=== PATIENT | female | born 1990 | race Caucasian/White ===

== ENCOUNTER 2016-09-02 21:05 | Emergency (ER) | payer OTHER ==
[~2016-09-02 21:05] MED LIST: /MOM400 PO; ACET50TA PO; ANUS2.5C2 EXT; DOCU10ELUD PO; IBUP600T26 PO; IBUP60TA PO; MULTTAB20 PO; ULTR50TA PO; ZANTTAB PO
[2016-09-02] MEDS ORDERED: IBUPROFEN 600 MG TAB As Ordered ONE (22:48)
[2016-09-02] MEDS ORDERED: CEPHALEXIN 250 MG CAP As Ordered ONE (22:48)
--- NOTE | 2016-09-02 22:54 | REP ---
Clinical: Trauma. Technique: AP, lateral, bilateral oblique views right foot . Findings: The osseous structures and joint spaces are intact and normal. There is no evidence for acute fracture or dislocation. Surrounding soft tissues are unremarkable. No subcutaneous emphysema or radiodense foreign body. Impression: No acute fracture or dislocation. Signed by Bashir Smith MD 09/02/2016 10:45 P
--- NOTE | 2016-09-02 23:01 | EDDOCDS ---
Physician Documentation [facility] Name: Andra Crouch Age: 26 yrs Sex: Female : 1990 Arrival Date: 09/02/2016 Time: 21:05 Bed PD Private MD: Jose Marie MD Disposition: 09/02/16 22:50 Discharged to Home/Self Care. Impression: Contusion of right foot, Abrasion of toe. - Condition is Stable. - Discharge Instructions: Foot Contusion. - Prescriptions for Ibuprofen 600 mg Oral Tablet - take 1 tablet by ORAL route every 6 hours As needed take with food; 30 tablet. Keflex 500 mg Oral Capsule - take 1 capsule by ORAL route every 6 hours for 10 days; 40 capsule. - Medication Reconciliation, Local Pharmacy Hours form. - Follow up: [facility]; When: 2 - 3 days; Reason: Recheck today's complaints, Continuance of care. - Problem is new. - Symptoms have improved. Historical: - Allergies: SULFA (SULFONAMIDES); - Home Meds: 1. Albuterol Inhl 2. Albuterol Nebulizer 3. Klonopin 0.5 mg Oral TbDL - PMHx: Asthma; - PSHx: none; - Social history: Smoking status: Patient uses tobacco products, current some day smoker. No barriers to communication noted, The patient speaks fluent Greek, Speaks appropriately for age. - Family history: Not pertinent. - : The pt / caregiver states he / she is not on anticoagulants. Home medication list is obtained from the patient. - Exposure Risk Screening:: None identified. 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 3 in. (160.02 cm) (R); Pain 9/10; 21:07 Body Mass Index 33.48 (85.73 kg, 160.02 cm) gr2 Procedures: 22:50 Fracture care/splinting: Splint applied to right foot using POST OP SHOE. applied by ck7 nurse. Examined by me, post splint application: neurovascular intact, 2+ distal pulses palpable, brisk capillary refill noted, Patient tolerated well. MDM: 21:16 Foot, Complete Ordered. EDMS 22:44 Wound Care ordered. ck7 22:44 Ibuprofen 600 mg PO once ordered. ck7 22:44 Cephalexin 500 mg PO once ordered. ck7 22:44 Splint Affected Extremity ordered. ck7 22:44 Crutches ordered. ck7 Administered Medications: 22:52 Drug: Ibuprofen 600 mg [ibuprofen 600 mg tablet (1 tabs)] Route: PO; mb9 22:52 Drug: Cephalexin 500 mg [cephalexin 250 mg capsule (2 caps)] Route: PO; mb9 Signatures: Dispatcher MedHost EDMS Herrera Llamas, RN NUNO cz Lilo Abdul RN RN lf1 Rell Turk, RPA-C RPA-Cck7 Tani Richardson RN RN mb9 LIZZIED
--- NOTE | 2016-09-02 23:01 | EDDOCDS ---
Nurse's Notes [facility] Name: Andra Crouch Age: 26 yrs Sex: Female : 1990 Arrival Date: 09/02/2016 Time: 21:05 Bed PD Private MD: Jose Marie MD Diagnosis: Contusion of right foot;Abrasion of toe Presentation: 09/02 21:10 Presenting complaint: Patient states: kicked bathroom door with bare foot now having cz pain to right toes and foot. Adult Sepsis Screening: The patient does not have new or worsening altered mentation. Patient's respiratory rate is less than 22. Systolic blood pressure is greater than 100. Patient has a qSOFA score of 0- Negative Sepsis Screen. Suicide/Homicide risk assessment- the patient denies having any suicidal and/or homicidal ideations and does not present with any other emotional, behavioral or mental health complaints. 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 Transition of care: patient was not received from another setting of care. 21:10 Acuity: DEYSI Level 4 cz 21:10 Method Of Arrival: Wheelchair cz Triage Assessment: 21:14 General: Appears uncomfortable. Pain: Location: right foot Pain currently is 6 out of cz 10 on a pain scale. HIV screening NA for this visit Offered previously. 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 Albuterol Inhl 2. Albuterol Nebulizer 3. Klonopin 0.5 mg Oral TbDL - PMHx: Asthma; - PSHx: none; - Social history: Smoking status: Patient uses tobacco products, current some day smoker. No barriers to communication noted, The patient speaks fluent Bahamian, Speaks appropriately for age. - Family history: Not pertinent. - : The pt / caregiver states he / she is not on anticoagulants. Home medication list is obtained from the patient. - Exposure Risk Screening:: None identified. Screenin:35 Screening information is obtained from the patient. Fall risk: No risks identified. lf1 Assistance ADL's: requires no assistance with activities of daily living. Abuse/DV Screen: The patient / caregiver reports he/she is: not in a situation that causes fear, pain or injury. Nutritional screening: No deficits noted. Advance Directives: Currently, there is a health care proxy, Skylar Seth. home support is adequate. Assessment: 22:35 Adult Sepsis Screening: The patient does not have new or worsening altered mentation. lf1 Patient's respiratory rate is less than 22. Systolic blood pressure is greater than 100. Patient has a qSOFA score of 0- Negative Sepsis Screen. General: Appears uncomfortable, Behavior is cooperative. Pain: Location: right foot Pain currently is 6 out of 10 on a pain scale. Neurological: Level of Consciousness is awake, alert, Oriented to person, place, time. EENT: No deficits noted. Cardiovascular: Chest pain is denied. Respiratory: Respiratory effort is even, unlabored, Reports shortness of breath Pt reports history of anxiety and feels that she is more short of breath due to pain and anxiety. GI: Denies nausea, vomiting. Derm: Right foot with dried blood to 3rd toe. Injury Description: kicked bathroom door. Vital Signs: 21:07 BP 127 / 81; Pulse 113; Resp 18 S; Temp 98.2(O); Pulse Ox 97% on R/A; Weight 85.73 kg gr2 (R); Height 5 ft. 3 in. (160.02 cm) (R); Pain 9/10; 21:07 Body Mass Index 33.48 (85.73 kg, 160.02 cm) gr2 Vitals: 21:07 Log In Time: September 02, 2016 at 21:07. gr2 ED Course: 21:06 Patient visited by Melita Ovalles. gr2 21:06 Jose Marie is Private Physician. gr2 21:06 Patient moved to Waiting gr2 21:08 Patient visited by Melita Ovalles. gr2 21:08 Patient moved to Pre RCE gr2 21:12 Triage Initiated cz 22:32 Patient moved to Triage 1 mb9 22:37 Rell Turk [facility]PA[facility]C [facility] ck7 22:37 Ronnie Medina MD is Attending Physician. ck7 22:37 Patient visited by Rell Turk RPA-C. ck7 22:38 Patient visited by Lilo Abdul RN. lf1 22:46 Patient moved to I3 / M3 ar3 22:46 Patient moved to PD2 / 27 lf1 22:49 [facility] is Referral Physician. ck7 22:58 The patient / caregiver is instructed regarding the plan of care and ED course. mb9 22:58 No IV's were initiated during this patient's visit. No procedures done that require mb9 assistance. Crutch training done. Ortho shoe applied to right foot. Wound care to abrasion, located on right foot was cleaned with soap and water, dressed with band aid, Patient tolerated well. Administered Medications: 22:52 Drug: Ibuprofen 600 mg [ibuprofen 600 mg tablet (1 tabs)] Route: PO; mb9 22:52 Drug: Cephalexin 500 mg [cephalexin 250 mg capsule (2 caps)] Route: PO; mb9 Order Results: There are currently no results for this order. Outcome: 22:50 Discharge ordered by Provider. ck7 22:58 Discharge Assessment: Patient awake, alert and oriented x 3. No cognitive and/or mb9 functional deficits noted. Patient verbalized understanding of disposition instructions. patient administered narcotics - no. The following High Risk Discharge criteria are identified: None. Discharged to home ambulatory. Condition: good Condition: stable Condition: improved. Discharge instructions given to patient, Instructed on discharge instructions, follow up and referral plans. medication usage, Demonstrated understanding of instructions, medications, Pt was receptive of discharge instructions/ teaching. Prescriptions given X 1. No special radiology studies were completed. Property :Personal belongings accompany Pt. 23:00 Patient left the ED. mb9 Signatures: Herrera Llamas, RN RN Lilo Abdul RN RN lf1 Alexa Garcia, NELDA CARPENTER'S HELPER ar3 Rell Turk RPA-C RPA-Cck7 Melita Ovalles 2 Tani Richardson RN RN mb9 MTDD
--- NOTE | 2016-09-05 00:01 | EDDOCDS ---
Physician Documentation [facility] Name: Andra Crouch Age: 26 yrs Sex: Female : 1990 Arrival Date: 09/02/2016 Time: 21:05 Bed PD Private MD: Jose Marie MD Disposition: 09/02/16 22:50 Discharged to Home/Self Care. Impression: Contusion of right foot, Abrasion of toe. - Condition is Stable. - Discharge Instructions: Foot Contusion. - Prescriptions for Ibuprofen 600 mg Oral Tablet - take 1 tablet by ORAL route every 6 hours As needed take with food; 30 tablet. Keflex 500 mg Oral Capsule - take 1 capsule by ORAL route every 6 hours for 10 days; 40 capsule. - Medication Reconciliation, Local Pharmacy Hours form. - Follow up: [facility]; When: 2 - 3 days; Reason: Recheck today's complaints, Continuance of care. - Problem is new. - Symptoms have improved. Historical: - Allergies: SULFA (SULFONAMIDES); - Home Meds: 1. Albuterol Inhl 2. Albuterol Nebulizer 3. Klonopin 0.5 mg Oral TbDL - PMHx: Asthma; - PSHx: none; - Social history: Smoking status: Patient uses tobacco products, current some day smoker. No barriers to communication noted, The patient speaks fluent Scottish, Speaks appropriately for age. - Family history: Not pertinent. - : The pt / caregiver states he / she is not on anticoagulants. Home medication list is obtained from the patient. - Exposure Risk Screening:: None identified. 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 3 in. (160.02 cm) (R); Pain 9/10; 21:07 Body Mass Index 33.48 (85.73 kg, 160.02 cm) gr2 Procedures: 22:50 Fracture care/splinting: Splint applied to right foot using POST OP SHOE. applied by ck7 nurse. Examined by me, post splint application: neurovascular intact, 2+ distal pulses palpable, brisk capillary refill noted, Patient tolerated well. MDM: 21:16 Foot, Complete Ordered. EDMS 22:44 Wound Care ordered. ck7 22:44 Ibuprofen 600 mg PO once ordered. ck7 22:44 Cephalexin 500 mg PO once ordered. ck7 22:44 Splint Affected Extremity ordered. ck7 22:44 Crutches ordered. ck7 23:01 COUNTS INCLUDE 234 BEDS AT THE [facility] Payment Agreement was scanned into [employer] and attached to record. : Financial registration complete. 09/03 10:18 T-Sheet-- Draft Copy was scanned into [employer] and attached to record. gb Administered Medications: 09/02 22:52 Drug: Ibuprofen 600 mg [ibuprofen 600 mg tablet (1 tabs)] Route: PO; mb9 22:52 Drug: Cephalexin 500 mg [cephalexin 250 mg capsule (2 caps)] Route: PO; mb9 Signatures: Dispatcher [employer] EDHerrera Barnett RN RN cz Barnhardt, Gloria, Reg Reg Lilo AbdulRN NUNO lf1 Rell Turk, RPA-C RPA-Cck7 Tani RichardsonRN RN mb9 Lilo Menard The chart was reviewed and I authenticate all verbal orders and agree with the evaluation and treatment provided.Attachments: 23: COUNTS INCLUDE 234 BEDS AT THE [facility] Payment Agreement 09/03 10:18 T-Sheet-- Draft Copy gb Chart Complete MTDD
--- NOTE | 2016-09-05 00:01 | EDDOCDS ---
Nurse's Notes [facility] Name: Andra Crouch Age: 26 yrs Sex: Female : 1990 Arrival Date: 09/02/2016 Time: 21:05 Bed PD Private MD: Jose Marie MD Diagnosis: Contusion of right foot;Abrasion of toe Presentation: 09/02 21:10 Presenting complaint: Patient states: kicked bathroom door with bare foot now having cz pain to right toes and foot. Adult Sepsis Screening: The patient does not have new or worsening altered mentation. Patient's respiratory rate is less than 22. Systolic blood pressure is greater than 100. Patient has a qSOFA score of 0- Negative Sepsis Screen. Suicide/Homicide risk assessment- the patient denies having any suicidal and/or homicidal ideations and does not present with any other emotional, behavioral or mental health complaints. 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 Transition of care: patient was not received from another setting of care. 21:10 Acuity: DEYSI Level 4 cz 21:10 Method Of Arrival: Wheelchair cz Triage Assessment: 21:14 General: Appears uncomfortable. Pain: Location: right foot Pain currently is 6 out of cz 10 on a pain scale. HIV screening NA for this visit Offered previously. 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 Albuterol Inhl 2. Albuterol Nebulizer 3. Klonopin 0.5 mg Oral TbDL - PMHx: Asthma; - PSHx: none; - Social history: Smoking status: Patient uses tobacco products, current some day smoker. No barriers to communication noted, The patient speaks fluent Swazi, Speaks appropriately for age. - Family history: Not pertinent. - : The pt / caregiver states he / she is not on anticoagulants. Home medication list is obtained from the patient. - Exposure Risk Screening:: None identified. Screenin:35 Screening information is obtained from the patient. Fall risk: No risks identified. lf1 Assistance ADL's: requires no assistance with activities of daily living. Abuse/DV Screen: The patient / caregiver reports he/she is: not in a situation that causes fear, pain or injury. Nutritional screening: No deficits noted. Advance Directives: Currently, there is a health care proxy, Skylar Seth. home support is adequate. Assessment: 22:35 Adult Sepsis Screening: The patient does not have new or worsening altered mentation. lf1 Patient's respiratory rate is less than 22. Systolic blood pressure is greater than 100. Patient has a qSOFA score of 0- Negative Sepsis Screen. General: Appears uncomfortable, Behavior is cooperative. Pain: Location: right foot Pain currently is 6 out of 10 on a pain scale. Neurological: Level of Consciousness is awake, alert, Oriented to person, place, time. EENT: No deficits noted. Cardiovascular: Chest pain is denied. Respiratory: Respiratory effort is even, unlabored, Reports shortness of breath Pt reports history of anxiety and feels that she is more short of breath due to pain and anxiety. GI: Denies nausea, vomiting. Derm: Right foot with dried blood to 3rd toe. Injury Description: kicked bathroom door. Vital Signs: 21:07 BP 127 / 81; Pulse 113; Resp 18 S; Temp 98.2(O); Pulse Ox 97% on R/A; Weight 85.73 kg gr2 (R); Height 5 ft. 3 in. (160.02 cm) (R); Pain 9/10; 21:07 Body Mass Index 33.48 (85.73 kg, 160.02 cm) gr2 Vitals: 21:07 Log In Time: September 02, 2016 at 21:07. gr2 ED Course: 21:06 Patient visited by Melita Ovalles. gr2 21:06 Jose Marie is Private Physician. gr2 21:06 Patient moved to Waiting gr2 21:08 Patient visited by Melita Ovalles. gr2 21:08 Patient moved to Pre RCE gr2 21:12 Triage Initiated cz 22:32 Patient moved to Triage 1 mb9 22:37 [facility]ell [facility] ck7 22:37 Ronnie Medina MD is Attending Physician. ck7 22:37 Patient visited by Rell Turk RPA-C. ck7 22:38 Patient visited by Lilo Abdul RN. lf1 22:46 Patient moved to I3 / M3 ar3 22:46 Patient moved to PD2 / 27 lf1 22:49 [facility] is Referral Physician. ck7 22:58 The patient / caregiver is instructed regarding the plan of care and ED course. mb9 22:58 No IV's were initiated during this patient's visit. No procedures done that require mb9 assistance. Crutch training done. Ortho shoe applied to right foot. Wound care to abrasion, located on right foot was cleaned with soap and water, dressed with band aid, Patient tolerated well. 23:01 [facility] Payment Agreement was scanned into [employer] and attached to record. lja 23:22 Foot, Complete Returned. EDOH 09/03 10:18 T-Sheet-- Draft Copy was scanned into [employer] and attached to record. gb Administered Medications: 09/02 22:52 Drug: Ibuprofen 600 mg [ibuprofen 600 mg tablet (1 tabs)] Route: PO; mb9 22:52 Drug: Cephalexin 500 mg [cephalexin 250 mg capsule (2 caps)] Route: PO; mb9 Order Results: Radiology Order: Foot, Complete Test: Foot, Complete REASON FOR EXAMINATION: Trauma; Clinical: Trauma.; ; Technique: AP, lateral, bilateral oblique views right foot .; ; Findings: The osseous structures and joint spaces are intact and normal. There; is no evidence for acute fracture or dislocation. Surrounding soft tissues are; unremarkable. No subcutaneous emphysema or radiodense foreign body.; ; Impression:; No acute fracture or dislocation.; ; ; Signed by; Bashir Smith MD 09/02/2016 10:45 P; Outcome: 22:50 Discharge ordered by Provider. ck7 22:58 Discharge Assessment: Patient awake, alert and oriented x 3. No cognitive and/or mb9 functional deficits noted. Patient verbalized understanding of disposition instructions. patient administered narcotics - no. The following High Risk Discharge criteria are identified: None. Discharged to home ambulatory. Condition: good Condition: stable Condition: improved. Discharge instructions given to patient, Instructed on discharge instructions, follow up and referral plans. medication usage, Demonstrated understanding of instructions, medications, Pt was receptive of discharge instructions/ teaching. Prescriptions given X 1. No special radiology studies were completed. Property :Personal belongings accompany Pt. 23:00 Patient left the ED. mb9 Signatures: [facility] Herrera Llamas RN RN cz Belinda Rich, Reg Reg gb Abdul,Lilo,RN RN lf1 Alexa Garcia, NURSE ANESTHETIST NURSE ANESTHETIST ar3 Rell Turk, RPA-C RPA-Cck7 Melita Ovalles2 Tani RichardsonRN RN mb9 Arel, Lilo diaz Chart Complete MTDD
--- NOTE | 2016-09-05 00:01 | EDDOCDS ---
Physician Documentation [facility] Name: Andra Crouch Age: 26 yrs Sex: Female : 1990 Arrival Date: 09/02/2016 Time: 21:05 Bed PD Private MD: Jose Marie MD Disposition: 09/02/16 22:50 Discharged to Home/Self Care. Impression: Contusion of right foot, Abrasion of toe. - Condition is Stable. - Discharge Instructions: Foot Contusion. - Prescriptions for Ibuprofen 600 mg Oral Tablet - take 1 tablet by ORAL route every 6 hours As needed take with food; 30 tablet. Keflex 500 mg Oral Capsule - take 1 capsule by ORAL route every 6 hours for 10 days; 40 capsule. - Medication Reconciliation, Local Pharmacy Hours form. - Follow up: [facility]; When: 2 - 3 days; Reason: Recheck today's complaints, Continuance of care. - Problem is new. - Symptoms have improved. Historical: - Allergies: SULFA (SULFONAMIDES); - Home Meds: 1. Albuterol Inhl 2. Albuterol Nebulizer 3. Klonopin 0.5 mg Oral TbDL - PMHx: Asthma; - PSHx: none; - Social history: Smoking status: Patient uses tobacco products, current some day smoker. No barriers to communication noted, The patient speaks fluent [place], Speaks appropriately for age. - Family history: Not pertinent. - : The pt / caregiver states he / she is not on anticoagulants. Home medication list is obtained from the patient. - Exposure Risk Screening:: None identified. 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 3 in. (160.02 cm) (R); Pain 9/10; 21:07 Body Mass Index 33.48 (85.73 kg, 160.02 cm) gr2 Procedures: 22:50 Fracture care/splinting: Splint applied to right foot using POST OP SHOE. applied by ck7 nurse. Examined by me, post splint application: neurovascular intact, 2+ distal pulses palpable, brisk capillary refill noted, Patient tolerated well. MDM: 21:16 Foot, Complete Ordered. EDMS 22:44 Wound Care ordered. ck7 22:44 Ibuprofen 600 mg PO once ordered. ck7 22:44 Cephalexin 500 mg PO once ordered. ck7 22:44 Splint Affected Extremity ordered. ck7 22:44 Crutches ordered. ck7 23:01 [facility] Payment Agreement was scanned into [employer] and attached to record. : Financial registration complete. 09/03 10:18 T-Sheet-- Draft Copy was scanned into [employer] and attached to record. gb Administered Medications: 09/02 22:52 Drug: Ibuprofen 600 mg [ibuprofen 600 mg tablet (1 tabs)] Route: PO; mb9 22:52 Drug: Cephalexin 500 mg [cephalexin 250 mg capsule (2 caps)] Route: PO; mb9 Signatures: Dispatcher [employer]Host EDHerrera Barnett RN RN cz Barnhardt, Gloria, Reg Reg Lilo AbdulRN NUNO lf1 Rell Turk, RPA-C RPA-Cck7 Tani RichardsonRN RN mb9 Lilo Menard The chart was reviewed and I authenticate all verbal orders and agree with the evaluation and treatment provided.Attachments: 23: [facility] Payment Agreement 09/03 10:18 T-Sheet-- Draft Copy gb Chart Complete MTDD
== END 2016-09-02 23:00 | disposition home or self-care (01) ==
LOC: M ED 21:05
DX: S90.31XA Contusion of right foot, initial encounter (principal); S90.811A Abrasion, right foot, initial encounter; W22.8XXA Striking against or struck by other objects, initial encounter; Y92.019 Unspecified place in single-family (private) house as the place of occurrence of the external cause; Y93.89 Activity, other specified; Y99.8 Other external cause status; F17.210 Nicotine dependence, cigarettes, uncomplicated; J45.909 Unspecified asthma, uncomplicated; Z79.899 Other long term (current) drug therapy; Z79.51 Long term (current) use of inhaled steroids; Z88.2 Allergy status to sulfonamides

== ENCOUNTER 2017-03-09 19:43 | Emergency (ER) | payer OTHER ==
[~2017-03-09] VITALS: Ht 160 cm; Wt 84.5 kg
[~2017-03-09 19:43] MED LIST changes: -ULTR50TA PO; +ULTR50TA8 PO
[2017-03-09] MEDS ORDERED: ALBU17IN INH (19:59)
[2017-03-09 20:53] LABS: CONTROL LINE UCG INT CTR LINE PRESENT
[2017-03-09] MEDS ORDERED: ONDANSETRON 4MG/2ML VIAL (J2405) IV ONE (21:00)
[2017-03-09] MEDS ORDERED: NS 1,000 ML IV ONE (21:00)
[2017-03-09] MEDS: MORPHINE 4 MG/ML 1ML SYRINGE IV PRN ×2 (21:08→21:38)
[2017-03-09 21:17] LABS: BASO % 0.3 % (0.0-1.0); EOS # 0.1 K/mm3 (0.0-0.50); EOS % 1.3 % (0.0-3.0); LARGE UNSTAINED CELL # 0.1 K/mm3 (0.0-0.4); LARGE UNSTAINED CELL % 1.2 % (0.0-4.0); LYMPH # 2.4 K/mm3 (1.5-6.5); LYMPH % 22.5 % (24.0-44.0); MEAN CORPUSCULAR HEMOGLOBIN 29.2 pg (27.0-33.0); MEAN CORPUSCULAR VOLUME 88.6 fl (80.0-96.0); MONO # 0.3 K/mm3 (0.0-0.8); MONO % 2.7 % (0.0-5.0); NEUTROPHILS # 7.4 K/mm3 (1.8-7.7); PLATELET COUNT, AUTOMATED 221 k/mm3 (150-450); RED CELL DISTRIBUTION WIDTH 13.9 % (11.5-14.5); WHITE BLOOD COUNT 10.2 K/mm3 (4.0-10.0)
[2017-03-09 21:19] LABS: CONTROL LINE HCG INT CTR LINE PRESENT
[2017-03-09 21:26] LABS: ALBUMIN 4.3 GM/DL (3.2-5.2); ALBUMIN/GLOBULIN RATIO 1.48 (1.00-1.93); ALKALINE PHOSPHATASE 100 U/L (45-117); ALT/SGPT 52 U/L (12-78); ANION GAP 6 MEQ/L (8-16); AST/SGOT 17 U/L (15-37); BILIRUBIN,DIRECT 0.1 MG/DL (0.0-0.2); BILIRUBIN,TOTAL 0.5 MG/DL (0.2-1.0); BLOOD UREA NITROGEN 10 MG/DL (7-18); CALCIUM LEVEL 9.3 MG/DL (8.5-10.1); CARBON DIOXIDE LEVEL 27 MEQ/L (21-32); CHLORIDE LEVEL 107 MEQ/L (98-107); CREATININE FOR GFR 0.66 MG/DL (0.55-1.02); GLOMERULAR FILTRATION RATE > 60.0 (>60); GLUCOSE, FASTING 87 MG/DL (70-105); POTASSIUM SERUM 3.7 MEQ/L (3.5-5.1); SODIUM LEVEL 140 MEQ/L (136-145); TOTAL PROTEIN 7.2 GM/DL (6.4-8.2)
[2017-03-09] MEDS ORDERED: ISOVUE-370 76% 100ML VIAL (Q9967) As Ordered ONE (22:18)
[2017-03-09] MEDS ORDERED: MORPHINE 4 MG/ML 1ML SYRINGE IV PRN (22:45)
--- NOTE | 2017-03-09 23:00 | REPUSA ---
CT of the abdomen and pelvis with contrast Clinical statement: Pain.. Possible obstruction. Technique: Multiple axial CT images were obtained from the base of the lungs through the floor of the pelvis utilizing 5 mm axial slices after administration of nonionic intravenous contrast. Coronal an d sagittal reconstructions were also obtained. Comparison: 06/05/2014. Findings: Chest: The visualized lung bases are clear. Abdomen: The liver, spleen, pancreas, kidneys, gallbladder, and adrenal glands are unremarkable. The aorta is within normal limits. There is no evidence of abdominal lymphadenopathy or ascites. There is a small umbilical hernia without bowel involvement. Pelvis: The bowel is unremarkable, with no obstructive or inflammatory changes. The appendix is wolf l. The urinary bladder is within normal limits. The other pelvic structures appear grossly intact. Th ere is no evidence of pelvic lymphadenopathy or ascites. Bones: There are no suspicious osseous abnormalities seen. Impression: 1. No obstructive or inflammatory bowel changes. 2. Small umbilical hernia.
[2017-03-10] MEDS ORDERED: GI COCKTAIL 50ML BTL(HYOSCYAMINE/MAALOX/LIDOCAINE VISCOUS)(1:3:1) PO ONE
[2017-03-10] MEDS ORDERED: OMEP40CA2 PO (00:17)
[2017-03-10] MEDS ORDERED: KETOROLAC 30 MG/ML VIAL (J1885) IV ONE (00:30)
[2017-03-10 00:50] VITALS: BP 129/93
== END 2017-03-10 01:07 | disposition home or self-care (01) ==
LOC: M ED 19:43
DX: K42.9 Umbilical hernia without obstruction or gangrene (principal); R10.9 Unspecified abdominal pain; J45.909 Unspecified asthma, uncomplicated; Z87.442 Personal history of urinary calculi; Z88.2 Allergy status to sulfonamides

== ENCOUNTER → 2017-03-26 | Outpatient (REF) | payer OTHER ==
[~2017-03-26] MED LIST changes: +ALBU17IN INH; +KLON0.5T PO; +MAGICMW MT; +OMEP40CA2 PO; +ORTHTAB14 PO; +PRED20TA PO
== END ==
LOC: M LAB REF 13:15
PROVIDERS: ATTEND Specialist
DX: Z12.4 Encounter for screening for malignant neoplasm of cervix (principal)

== ENCOUNTER 2017-06-03 22:04 | Emergency (ER) | payer OTHER ==
[~2017-06-03] VITALS: Ht 157.5 cm; Wt 84.5 kg
[~2017-06-03 22:04] MED LIST changes: -KLON0.5T PO; -MAGICMW MT; -ORTHTAB14 PO; -PRED20TA PO
[2017-06-03] MEDS ORDERED: KLON0.5T PO (22:16)
[2017-06-03] MEDS ORDERED: ORTHTAB14 PO (22:18)
[2017-06-03] MEDS ORDERED: MAGIC MOUTHWASH SUSPENSION BTL SS ONE ×2 (23:45)
[2017-06-03] MEDS ORDERED: predniSONE 20 MG TAB PO ONE (23:45)
[2017-06-03] MEDS ORDERED: PRED20TA PO (23:54)
[2017-06-03] MEDS ORDERED: MAGICMW MT (23:54)
[2017-06-04 00:26] VITALS: BP 141/82
== END 2017-06-04 00:33 | disposition home or self-care (01) ==
LOC: M ED 22:04
DX: J03.90 Acute tonsillitis, unspecified (principal); J45.909 Unspecified asthma, uncomplicated; F41.9 Anxiety disorder, unspecified; F17.210 Nicotine dependence, cigarettes, uncomplicated; Z88.2 Allergy status to sulfonamides

== ENCOUNTER → 2018-06-18 | Outpatient (CLI) | payer MEDICAID | LOC: M OUTALCOH 08:43 | DX: F11.20 Opioid dependence, uncomplicated (principal) ==

== ENCOUNTER 2018-06-28 09:00 | Outpatient (RCR) | payer MEDICAID | END 2018-06-30 | LOC: M OUTALCOH 09:00 | DX: F11.20 Opioid dependence, uncomplicated (principal) ==

== ENCOUNTER 2018-07-06 11:14 | Outpatient (RCR) | payer MEDICAID | END 2018-07-30 | LOC: M OUTALCOH 07-08 14:00 | DX: F11.20 Opioid dependence, uncomplicated (principal) ==

== ENCOUNTER 2018-08-12 08:59 | Outpatient (RCR) | payer MEDICAID ==
[~2018-08-12 08:59] MED LIST changes: +KLON0.5T PO; +MAGICMW MT; +ORTH1TAB16 PO; +PRED20TA PO
== END 2018-08-30 ==
LOC: M OUTALCOH 08:59
PROVIDERS: ATTEND Psychiatry & Neurology Psychiatry
DX: F11.20 Opioid dependence, uncomplicated (principal)

== ENCOUNTER → 2018-09-30 | Outpatient (RCR) | payer MEDICAID | LOC: M OUTALCOH 09-09 12:03 | PROVIDERS: ATTEND Psychiatry & Neurology Psychiatry | DX: F11.20 Opioid dependence, uncomplicated (principal) ==

== ENCOUNTER → 2019-01-05 | Outpatient (CLI) | payer MEDICAID, OTHER ==
[~2019-01-05] MED LIST changes: -/MOM400 PO; -ACET50TA PO; -DOCU10ELUD PO; +DOCU5LIQ PO; +IBUP600T42 PO; -IBUP60TA PO; +MAPA500T17 PO; +MILK10SU PO; +ORTH1TAB15 PO; -ORTH1TAB16 PO
== END ==
LOC: M LAB 13:30
PROVIDERS: ATTEND Advanced Practice Midwife
DX: O20.0 Threatened abortion (principal)

== ENCOUNTER → 2019-01-17 | Outpatient (CLI) | payer MEDICAID, OTHER | LOC: M WUC 12:36 | PROVIDERS: ATTEND Advanced Practice Midwife | DX: Z36.89 Encounter for other specified antenatal screening (principal) ==

== ENCOUNTER → 2019-03-01 | Outpatient (CLI) | payer MEDICAID ==
[~2019-03-01] MED LIST changes: -ORTH1TAB15 PO; +ORTH1TAB8 PO; +ZANT150T40 PO; -ZANTTAB PO
[2019-03-01 15:21] LABS: BASO % 0.3 % (0.0-1.0); EOS # 0.1 10^3/uL (0.0-0.50); EOS % 1.8 % (0.0-3.0); HEMATOCRIT 39.3 % (36.0-47.0); HEMOGLOBIN 13.1 g/dl (12.0-15.5); LYMPH # 2.2 10^3/uL (1.5-4.5); LYMPH % 29.6 % (24.0-44.0); MEAN CORPUSCULAR HEMOGLOBIN 29.6 pg (27.0-33.0); MEAN CORPUSCULAR HGB CONC 33.3 g/dl (32.0-36.5); MEAN CORPUSCULAR VOLUME 88.7 fl (80.0-96.0); MONO # 0.3 10^3/uL (0.0-0.8); MONO % 4.4 % (0.0-5.0); NEUTROPHILS # 4.7 10^3/uL (1.8-7.7); NEUTROPHILS % 63.8 % (36.0-66.0); PLATELET COUNT, AUTOMATED 195 10^3/uL (150-450); RED BLOOD COUNT 4.43 10^6/uL (4.00-5.40); WHITE BLOOD COUNT 7.3 10^3/uL (4.0-10.0)
[2019-03-01 16:53] LABS: CHLAMYDIA DNA AMPLIFICATION NEGATIVE (NEGATIVE); GC DNA AMPLIFICATION NEGATIVE (NEGATIVE)
[2019-03-02 11:19] LABS: HEPATITIS C VIRUS ABY INDEX 0.1 INDEX (<0.8); HIV 1&2 SCREEN CENTAUR NEGATIVE (NEGATIVE); RUBELLA IgG QUALITATIVE IMMUNE (IMMUNE)
== END ==
LOC: M WUC 11:25
PROVIDERS: ATTEND Advanced Practice Midwife
DX: Z34.81 Encounter for supervision of other normal pregnancy, first trimester (principal); Z3A.12 12 weeks gestation of pregnancy

== ENCOUNTER → 2019-04-18 | Outpatient (CLI) | payer OTHER ==
--- NOTE | 2019-04-19 11:08 | REP ---
Obstetric sonography: History: Supervision of for anatomy. Findings: Scanning through the gravid uterus demonstrates a viable single intrauterine gestation in an oblique head towards the maternal left position. motion is observed. Heart rate is recorded at 141 beats per minute. An anterior grade 0 placenta is seen without evidence of previa or abruption. Amniotic fluid is subjectively normal. Closed cervical length is measured at 4.6 cm, viewed transabdominally. No extrauterine abnormalities observed. No anomaly is seen. nose and lips are seen but facial profile is less than optimally seen due to position. The following additional anatomic structures are identified and felt to be unremarkable: cranium, choroid plexus, cavum, cerebellum and posterior fossa, lungs, four-chamber heart with left and right ventricular outflow tract views, diaphragm, left-sided stomach, abdominal wall cord insertion, three-vessel umbilical cord, kidneys and bladder, spine, upper and lower extremities. Biometry chart: BPD 4.6 cm = 19 weeks 6 days Head circumference 17.6 cm = 20 weeks 1 day Abdominal circumference 14.8 cm = 20 weeks 0 days Femur length 3.2 cm = 20 weeks 0 days Humeral length 3.4 cm = 21 weeks 5 days HC/AC ratio normal 1.19. Cephalic index normal 0.71. Estimated weight 328 grams, 0 pounds 11 ounces, 36 percentile for 20 weeks 2 days. Impression: Viable single intrauterine gestation at 20 weeks 2 days by today's composite sonographic criteria. NOLBERTO by today's sonography September 03, 2019. Electronically Signed by Neal Melchor MD 04/19/2019 07:12 P
== END ==
LOC: M RAD 17:28
PROVIDERS: ATTEND Advanced Practice Midwife
DX: Z36.89 Encounter for other specified antenatal screening (principal); Z3A.20 20 weeks gestation of pregnancy

== ENCOUNTER → 2019-06-07 | Outpatient (CLI) | payer OTHER ==
[2019-06-07 12:25] LABS: BASO % 0.3 % (0.0-1.0); EOS # 0.1 10^3/uL (0.0-0.5); EOS % 0.8 % (0.0-3.0); HEMATOCRIT 34.6 % (36.0-47.0); HEMOGLOBIN 11.5 g/dl (12.0-15.5); LYMPH # 1.9 10^3/uL (1.5-5.0); LYMPH % 20.7 % (24.0-44.0); MEAN CORPUSCULAR HEMOGLOBIN 29.4 pg (27.0-33.0); MEAN CORPUSCULAR HGB CONC 33.2 g/dl (32.0-36.5); MEAN CORPUSCULAR VOLUME 88.5 fl (80.0-96.0); MONO # 0.3 10^3/uL (0.0-0.8); MONO % 3.5 % (0.0-5.0); NEUTROPHILS # 6.7 10^3/uL (1.5-8.5); NEUTROPHILS % 74.3 % (36.0-66.0); PLATELET COUNT, AUTOMATED 214 10^3/uL (150-450); RED BLOOD COUNT 3.91 10^6/uL (4.00-5.40)
== END ==
LOC: M LAB 10:50
PROVIDERS: ATTEND Specialist
DX: O99.342 Other mental disorders complicating pregnancy, second trimester (principal)

== ENCOUNTER → 2019-08-04 | Outpatient (REF) | payer OTHER ==
[~2019-08-04] MED LIST changes: -OMEP40CA2 PO; +OMEP40CA97 PO
== END ==
LOC: M SFHCWAGY 16:59
PROVIDERS: ATTEND Advanced Practice Midwife
DX: Z34.93 Encounter for supervision of normal pregnancy, unspecified, third trimester (principal)

== ENCOUNTER 2019-08-29 19:11 | Inpatient (IN) | payer OTHER ==
[~2019-08-29] VITALS: Ht 160 cm; Wt 97.6 kg
[2019-08-29] MEDS ORDERED: LACTATED RINGER'S 1000 ML IV STA (19:32)
[2019-08-29] MEDS ORDERED: LR 1,000 ML IV SCH (19:32)
[2019-08-29 20:26] LABS: HEMATOCRIT 37.2 % (36.0-47.0); MEAN CORPUSCULAR HEMOGLOBIN 27.9 pg (27.0-33.0); MEAN CORPUSCULAR HGB CONC 32.3 g/dl (32.0-36.5); MEAN CORPUSCULAR VOLUME 86.5 fl (80.0-96.0); PLATELET COUNT, AUTOMATED 222 10^3/uL (150-450); WHITE BLOOD COUNT 9.5 10^3/uL (4.0-10.0)
[2019-08-29] MEDS ORDERED: FENTANYL 2MCG/ML ROPIVACAINE 0.2% IN 0.9% NACL 100ML IVBAG As Ordered ONE (20:46)
[2019-08-29] MEDS ORDERED: REFRIGERATOR IV KEYS XX PRN (21:45)
[2019-08-29] MEDS ORDERED: ePHEDrine SULFATE 25 MG/5 ML(5MG/ML) SYRINGE IV PRN (21:45)
[2019-08-29] MEDS ORDERED: ONDANSETRON 4MG/2ML VIAL (J2405) IV PRN (21:45)
[2019-08-29] MEDS ORDERED: EPIDURAL/PCA KEYS XX PRN (21:45)
[2019-08-29] MEDS ORDERED: EPIDURAL COMMENT XX SCH (21:45)
[2019-08-29] MEDS ORDERED: NALOXONE INJ 0.4 MG/1 ML VIAL (J2310) IV PRN (21:45)
[2019-08-29] MEDS ORDERED: FENTANYL/ROPIVACAINE/NACL BAG 100 ML EPIDURAL SCH (21:45)
[2019-08-29] MEDS ORDERED: diphenhydrAMINE INJ 50MG/ML VIAL (J1200) IV PRN (21:45)
[2019-08-29] MEDS ORDERED: OXYTOCIN 30 UNITS IN 0.9% NaCl 500ML IV BAG (J2590) As Ordered ONE (22:12)
--- NOTE | 2019-08-29 22:35 | HPEPDOC ---
Obstetrical History & Physical General Date of Admission Aug 29, 2019 at 19:30 Primary Care Physician: MONTRELL DEE CNM History of Present Illness Patient is a at 39.3 weeks gestation with an NOLBERTO of 09/02/19 based off of her first trimester ultrasound. She initiated her care in her first trimester with AWP. The patient's are has been complicated by depression and anxiety. She was taking Klonopin for this but took herself off in her first trimester. The patient presents to L&D with complaints of regular contractions. She reports decreased movements. She denies leaking of fluid or vaginal bleeding. Chief Complaint: Active Labor Information Provided By: Patient Age: 29 : 4 Term: 2 Pre-term: 0 Abortions: 2 Livin Care Care: Good Care Dating Final EDC: Sep 02, 2019 Final EDC by: 1st trimester (US) EGA at Admission: 39.3 Antepartum Course Height (inches): 62 Pre- weight (lbs.): 224 Admission Weight (lbs.): 212 Change in Weight (lbs.): 12 Past Medical History Past Obstetrical History #1: Past Obstetrical History: Primgravida Gestation: 40 Type of Delivery: Spontaneous Vaginal Del. (weight 7 lbs 10 oz) Sex of Infant: Female Complications: No Past Obstetrical History #2: Past Obstetrical History: Multigravida Gestation: 39 Type of Delivery: Spontaneous Vaginal Del. 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 , Human papillomavirus(HPV) Past Medical History Surgical History: Denies/None Family History Significant Family History: Diabetes, Heart disease, Hypertension Social History Marital Status: Family situation: Spouse/partner home Psychosocial History: Anxiety, Depression * Smoker: non-smoker Alcohol: Denies Drugs: denies Allergies Coded Allergies: Sulfa (Sulfonamide Antibiotics) (Verified Allergy, Unknown, 08/29/19) Medications Scheduled Albuterol Sulfate (Ventolin Hfa) 200 Puff/8 Gm Aers, 2 PUFF INH Q4HP Prednisone (Prednisone) 20 Mg Tab, 60 MG PO DAILY Scheduled PRN Magic Mouthwash (First-Mouthwash Blm) 1 Ea Susp, 1 TSP MT Q6HP PRN for PAIN MAALOX, VISCOUS LIDOCAINE, LIQUID BENADRYL. 1:1:1 Miscellaneous Medications Clonazepam (Klonopin) 0.5 Mg Tab, 0.5 MG PO Norgestimate-Ethinyl Estradiol (Ortho Tri-Cyclen 28 Tablet) 1 Tab Tab, 1 TAB PO Physical Examination Physical Examination GENERAL: Alert and oriented times three. BREAST: . ABDOMEN: Gravid and non-tender to touch. FETUS: Is vertex (VTX) by sterile vaginal examination (SVE), fetus is vertex (VTX) by Henry. HEART RATE: Regular rate and rhythm. LUNGS: Clear to auscultation (CTA). EXTREMITIES: Generalized edema. No clonus. Deep tendon reflexes (DTRs) + 2. Laboratory Data 24H LABS Laboratory Tests 2 08/29/19 19:48: Serology Scanned Report Hepatitis B Testing 08/29/19 20:08: Nucleated Red Blood Cells % (auto) 0.0 CBC/BMP Laboratory Tests 08/29/19 20:08 Urine Culture: No Growth Pertinent Laboratoy Data Blood Type: A- RBC Antibody Screen: Negative HIV: Negative Hepatitis B: Negative Hepatitis C: Negative Rapid Plasma Reagin: Nonreactive Rubella: Immune Chlamydia/Gonorrhea: Negative Group B Streptococcus: Negative Glucose Tolerance Test: 114 Vaginal Examination Dilation: 4 cm Effacement: 80% Station: -2 Cervical Consistency: Soft Cervical Position: Anterior Presentation: Cephalic presentation Position: Vertex (occiput) Assessment Heart Rate (FHR): 130 Variability: Moderate Accelerations: Positive Decelerations: None Tocometer Contractions: Yes Frequency: regular Assessment/Plan Assessment IUP at 39.3 weeks gestation active labor GBS negative Category I FHR tracing Plan Admit to L&D. OOB ad tiffany. Diet: clears. Group B Streptococcus (GBS) negative. Labs and intravenous (IV) per unit protocol. Anesthesia consult per patient's request. Lactated Ringers (LR): Bolus 800 mL, then at 125 mL/hr. Anticipate normal spontaneous delivery (). MONTRELL DEE CNM Aug 29, 2019 22:35
--- NOTE | 2019-08-29 22:50 | IPNPDOC ---
Obstetrical Progress Note Date of Service Aug 29, 2019 Subjective Patient reports she is comfortable with her epidural. Assessment Heart Rate (FHR): 130 Variability: Moderate Accelerations: Positive Decelerations: None Heart Rate Tracing: Category I Tocometer Contractions: Yes Frequency: regular Sterile Vaginal Examination Dilation: 7 cm Effacement (%): 100% Station: -2 Cervical Consistency: Soft Cervical Position: Anterior Postion/Presentation: Cephalic presentation Assessment and Plan Age: 29 : 5 Term: 2 Pre-term: 0 Abortions: 2 Livin EGA at Admission: 39.3 Status: Reassuring Group B Streptococcus: Negative Anticipate: Vaginal Delivery Additional Comments AROM to a large amount of clear slightly bloody fluid. MONTRELL DEE CNM Aug 29, 2019 22:50
[2019-08-29 23:19] LABS: ALT/SGPT 10 U/L (12-78); BILIRUBIN,TOTAL 0.6 MG/DL (0.2-1.0); CREATININE FOR GFR 0.61 MG/DL (0.55-1.30); GLOMERULAR FILTRATION RATE > 60.0 (>60); LDH LACTATE DEHYDROGENASE 131 U/L (84-246); URIC ACID 4.1 MG/DL (2.6-6.0)
[2019-08-30] MEDS ORDERED: OXYTOCIN DRIP 30 UNITS in IV 1 EA IV SCH ×3 (02:12)
--- NOTE | 2019-08-30 02:14 | DNPDOC ---
[facility] Delivery Note Delivery Note DATE OF DELIVERY: 08/30/2019 at 0153 PREDELIVERY DIAGNOSIS: 39 4/7 weeks' gestation and labor. POST DELIVERY DIAGNOSIS: Delivered. PROCEDURE: Spontaneous vaginal delivery. BROACH GRINDER: Montrell Whipple CNM,JUANCHO ANESTHESIA: epidural. ESTIMATED BLOOD LOSS: 250 mL. FINDINGS: 7 pounds 9 ounces; female , Score 8/9. DELIVERY SUMMARY: Patient is a 29-year-old female who is now a who presented to in active labor. She received an epidural for pain management. The patient progressed to fully dilated at 0149 and pushed t a living female in the RUTH position with restitution to ROT at 0153. The anterior shoulder delivered with ease and the corpus immediately followed. The baby as placed skin-to skin with mom active and crying. The cord was clamped x2 and cut by the FOB. The placenta delivered spontaneously and intact at 0200. The vagina, perineum, and cervix was inspected and found to be intact. Mom plans to breast feed. They are naming her Vaeda. Both mom and baby are in stable condition. All instruments and sponges are correct. MONTRELL WHIPPLE CNM Aug 30, 2019 02:14
[2019-08-30] MEDS ORDERED: RHOGAM 300 MCG (1500 IU) INJ (J2790) IM SCH (02:15)
[2019-08-30] MEDS ORDERED: METHYLERGONOVINE MALEATE 0.2 MG TAB PO PRN (02:15)
[2019-08-30] MEDS ORDERED: DOCUSATE SODIUM 100 MG CAP PO PRN (02:15)
[2019-08-30] MEDS ORDERED: ACETAMINOPHEN TAB 650MG DOSE (2X325MG) PO PRN (02:15)
[2019-08-30] MEDS ORDERED: DIBUCAINE 1% OINTMENT 30GM TOP PRN (02:15)
[2019-08-30] MEDS ORDERED: IBUPROFEN 600 MG TAB PO PRN (02:15)
[2019-08-30] MEDS ORDERED: MEASLES,MUMPS,RUBELLA VACCINE INJ (MMR-II) (90707) SC SCH (02:15)
[2019-08-30] MEDS: IBUPROFEN 800 MG TAB PO PRN ×3 (04:30→16:25)
[2019-08-30 06:00] VITALS: BP 119/64
[2019-08-30] MEDS: PRENATAL VITAMINS CHEWABLE TABLET PO SCH (08:57)
[2019-08-30] MEDS: ACETAMINOPHEN 500 MG TAB PO PRN ×2 (09:15→16:25)
[2019-08-30] MEDS ORDERED: ONDANSETRON 4MG/2ML VIAL (J2405) IV ONE (10:45)
[2019-08-30] MEDS ORDERED: MORPHINE 10 MG/ML 1ML VIAL (J2270) IV ONE (11:00)
[2019-08-30 17:57] VITALS: BP 115/53
[2019-08-31] MEDS: IBUPROFEN 800 MG TAB PO PRN (03:58)
[2019-08-31] MEDS: ACETAMINOPHEN 500 MG TAB PO PRN ×2 (03:58→10:31)
[2019-08-31 06:00] VITALS: BP 112/75
--- NOTE | 2019-08-31 06:59 | IPNPDOC ---
Text Note Date of Service The patient was seen on 08/31/19. NOTE (Postop) Day 1 S/p vaginal delivery; uncomplicated S:Patient is a 29-year-old female who is day one status post vaginal delivery. Patient says that she has some issues with pain control yesterday and was given a dose of morphine which allowed her to be pain-free for some time. She states that she did too much while she was feeling well and now feels sore and crampy right now. Patient says that she can keep up with Tylenol and Motrin throughout the day today. Patient reports that she is using the bathroom without difficulty. She is tolerating by mouth intake. She does not have any leg swelling or shortness of breath. She has minimal bleeding at this time. O: vitals: See below Gen. alert and oriented female who was sitting in bed when I walked in. Patient was no acute distress. Abd: Uterine fundus 1 cm below the umbilicus and firm Ext: Trace edema over the dorsum of the feet bilaterally A/P: 29 yo G 5 now P 3023. day 1 status post vaginal delivery Hemodynamically stable, afebrile, good pain control. Recovering well. -Routine care and advancement. -Anticipate discharge today VS,Fishbone, I+O VS, Fishbone, I+O Vital Signs Date Time Temp Pulse Resp B/P (MAP) Pulse Ox O2 Delivery O2 Flow Rate FiO2 08/31/19 06:00 97.2 75 16 112/75 (87) 08/30/19 17:57 Room Air 08/30/19 06:00 96 GME ATTESTATION GME ATTESTATION My faculty preceptor for this patient encounter was physically present during the encounter and was fully available. All aspects of the patient interview, examination, medical decision making process, and medical care plan development were reviewed and approved by the faculty preceptor. The faculty preceptor is aware and concurs with the plan as stated in the body of this note and will attest to such by his/her cosignature. KELLY SUNG DO Aug 31, 2019 06:59
[2019-08-31] MEDS: PRENATAL VITAMINS CHEWABLE TABLET PO SCH (08:10)
[2019-08-31] MEDS ORDERED: INFLUENZA QUADRIVALENT PF VACCINE 0.5ML SYRINGE (90686) IM ONE (14:30)
== END 2019-08-31 15:35 | disposition home or self-care (01) | DRG 560 ==
LOC: M LDO 19:11 → M LDI 19:30 → M OBS 08-30 05:34
PROVIDERS: ADMIT Advanced Practice Midwife; ATTEND Advanced Practice Midwife
PROC: 10907ZC Drainage of Amniotic Fluid, Therapeutic from Products of Conception, Via Natural or Artificial Opening (ICD-10-PCS; 2019-08-29)
PROC: 10E0XZZ Delivery of Products of Conception, External Approach (ICD-10-PCS; principal; 2019-08-30)
DX: O80 Encounter for full-term uncomplicated delivery (principal); Z3A.39 39 weeks gestation of pregnancy; Z37.0 Single live birth